=== PATIENT | female | born 1970 | race Two or more races ===

== ENCOUNTER → 2022-06-27 | Outpatient (CLI) | payer OTHER ==
[2022-06-27 10:21] LABS: Basophils # (auto) 0.1 10 ^3/uL (0-0.2); Eosinophils # (auto) 0.2 10 ^3/uL (0-0.8); Mean Corpuscular Volume 91.5 fL (80.0-100.0)
[2022-06-27 10:23] LABS: Basophils % (auto) 0.7 % (0.0-2.0); Eosinophils % (auto) 1.4 % (0.0-7.0); Hematocrit 39.7 % (36.0-46.0); Hemoglobin 13.6 g/dL (12.2-16.2); Lymphocytes # (auto) 4.6 10 ^3/uL (0.4-5.4); Lymphocytes % (auto) 38.2 % (10.0-50.0); Mean Corpuscular Hemoglobin 31.2 pg (28.0-32.0); Mean Corpuscular Hgb Conc. 34.1 g/dL (32.0-36.0); Neutrophils # (auto) 6.3 10 ^3/uL (1.6-8.6); Neutrophils % (auto) 51.7 % (37.0-80.0); Nucleated Red Blood Cells % 0.1 %; Red Blood Cells 4.35 10^6/uL (4.0-5.20); White Blood Cell 12.2 10^3/uL (4.4-10.8)
[2022-06-27 10:52] LABS: Albumin 3.1 g/dL (3.4-5.0); Calcium 8.8 mg/dL (8.5-10.1); Potassium 3.7 mmol/L (3.5-5.1)
[2022-06-27 10:58] LABS: BUN/Creatinine Ratio 23.3; Bilirubin, Total 0.6 mg/dL (0.2-1.0); Total Protein 7.6 g/dL (6.4-8.2)
[2022-06-27 11:16] LABS: Urine Blood 1+ /uL (Negative); Urine Specific Gravity 1.012 (1.001-1.035)
== END | disposition home or self-care (01) ==
LOC: LAB 09:45
PROVIDERS: ATTEND Nurse Practitioner Family
DX: Z76.89 Persons encountering health services in other specified circumstances (principal)
CPT/HCPCS: 36415; 80053; 80061; 81001; 83036; 84403; 84443; 85025

== ENCOUNTER → 2022-10-18 | Outpatient (CLI) | payer OTHER | END | disposition home or self-care (01) | LOC: LAB 12:14 | PROVIDERS: ATTEND Nurse Practitioner Family | DX: N39.0 Urinary tract infection, site not specified (principal) | CPT/HCPCS: 87086 ==

== ENCOUNTER → 2022-12-20 | Outpatient (CLI) | payer OTHER ==
[2022-12-20 12:18] LABS: Free T4 (Free Thyroxine) 0.89 ng/dL (0.89-1.76); Leuteinizing Hormone 46.2 IU/L
[2022-12-20 12:19] LABS: Follicle Stimulating Hormone 95.18 IU/L (SEE BELOW)
== END | disposition home or self-care (01) ==
LOC: LAB 10:59
PROVIDERS: ATTEND Nurse Practitioner Family
DX: N95.1 Menopausal and female climacteric states (principal)
CPT/HCPCS: 36415; 82672; 83001; 83002; 83036; 84439; 84443

== ENCOUNTER → 2023-05-10 | Outpatient (CLI) | payer OTHER ==
[2023-05-10 10:31] LABS: Basophils # (auto) 0 10 ^3/uL (0-0.2); Eosinophils # (auto) 0.2 10 ^3/uL (0-0.8); Hemoglobin 11.6 g/dL (12.2-16.2); Lymphocytes # (auto) 4.3 10 ^3/uL (0.4-5.4); Lymphocytes % (auto) 50.4 % (10.0-50.0); Mean Corpuscular Hemoglobin 28.5 pg (28.0-32.0); Monocytes # (auto) 0.7 10 ^3/uL (0-1.3); Neutrophils # (auto) 3.3 10 ^3/uL (1.6-8.6); White Blood Cell 8.6 10^3/uL (4.4-10.8)
[2023-05-10 10:33] LABS: Basophils % (auto) 0.4 % (0.0-2.0); Eosinophils % (auto) 2.8 % (0.0-7.0); Hematocrit 35.7 % (36.0-46.0); Mean Corpuscular Hgb Conc. 32.5 g/dL (32.0-36.0); Mean Corpuscular Volume 87.9 fL (80.0-100.0); Monocytes % (auto) 8.2 % (0.0-12.0); Neutrophils % (auto) 38.2 % (37.0-80.0); Nucleated Red Blood Cells % 0.1 %; Red Blood Cells 4.06 10^6/uL (4.0-5.20)
[2023-05-10 11:28] LABS: Alanine Aminotransferase 15 U/L (7-40); Albumin 3.9 g/dL (3.2-4.8); Alkaline Phosphatase 79 U/L (46-116)
[2023-05-10 11:29] LABS: Anion Gap 5 (5-15); Aspartate Aminotransferase 20 U/L (13-40); BUN/Creatinine Ratio 13.4 (10.0-20.0); Bilirubin, Total 0.8 mg/dL (0.2-1.0); Blood Urea Nitrogen 9 mg/dL (9-23); Calcium 8.7 mg/dL (8.7-10.4); Carbon Dioxide 27 mmol/L (20-30); Chloride 106 mmol/L (98-107); Glucose 88 mg/dL (74-106); Potassium 4.4 mmol/L (3.5-5.1); Sodium 138 mmol/L (136-145); Total Protein 6.9 g/dL (5.7-8.2)
[2023-05-10 11:53] LABS: Triglycerides 79 mg/dL (< 150)
[2023-05-10 11:54] LABS: LDL Cholesterol 108 mg/dL (< 100)
[2023-05-10 11:55] LABS: Cholesterol 183 mg/dL (< 200); HDL Cholesterol 59 mg/dL (40-59)
== END | disposition home or self-care (01) ==
LOC: LAB 09:48
DX: E78.5 Hyperlipidemia, unspecified (principal); R73.03 Prediabetes
CPT/HCPCS: 36415; 80053; 80061; 82043; 83036; 84439; 84443; 85025

== ENCOUNTER 2023-06-14 08:21 | Emergency (ER) | payer OTHER ==
[~2023-06-14] VITALS: Ht 157.5 cm; Wt 52.6 kg
[2023-06-14 08:40] VITALS: TEMP 97.6
[2023-06-14 09:25] LABS: Urine Bacteria NONE SEEN /hpf (None Seen); Urine Blood TRACE /uL (Negative); Urine Clarity Clear (Clear); Urine Color Colorless (Yellow); Urine Protein, UAD Negative (Negative); Urine Specific Gravity 1.013 (1.001-1.035); Urine Urobilinogen Normal (Negative); Urine WBC <1 /hpf (0 - 5); Urine pH 6.5 (5.0-8.0)
[2023-06-14 09:39] LABS: Basophils # (auto) 0.1 10 ^3/uL (0-0.2); Eosinophils # (auto) 0.2 10 ^3/uL (0-0.8); Hemoglobin 11.5 g/dL (12.2-16.2); Mean Corpuscular Volume 85.6 fL (80.0-100.0); Monocytes # (auto) 0.8 10 ^3/uL (0-1.3); Nucleated Red Blood Cells % 0.1 %
[2023-06-14 09:40] LABS: Basophils % (auto) 0.7 % (0.0-2.0); Hematocrit 35.9 % (36.0-46.0); Lymphocytes # (auto) 4.5 10 ^3/uL (0.4-5.4); Lymphocytes % (auto) 50.5 % (10.0-50.0); Mean Corpuscular Hemoglobin 27.3 pg (28.0-32.0); Mean Corpuscular Hgb Conc. 31.9 g/dL (32.0-36.0); Monocytes % (auto) 8.5 % (0.0-12.0); Neutrophils # (auto) 3.4 10 ^3/uL (1.6-8.6); Neutrophils % (auto) 38.3 % (37.0-80.0)
[2023-06-14 09:56] LABS: Alanine Aminotransferase 17 U/L (7-40); Albumin 4.2 g/dL (3.2-4.8); Alkaline Phosphatase 94 U/L (46-116); Anion Gap 6 (5-15); Aspartate Aminotransferase 25 U/L (13-40); BUN/Creatinine Ratio 15.9 (10.0-20.0); Blood Urea Nitrogen 11 mg/dL (9-23); Carbon Dioxide 26 mmol/L (20-30); Chloride 105 mmol/L (98-107); Glucose 90 mg/dL (74-106); Potassium 4.1 mmol/L (3.5-5.1); Sodium 137 mmol/L (136-145)
[2023-06-14 09:57] LABS: Bilirubin, Total 0.7 mg/dL (0.2-1.0); Total Protein 7.5 g/dL (5.7-8.2)
[2023-06-14] MEDS ORDERED: METR-344 PO (12:00)
[2023-06-14 12:28] VITALS: BP 105/76; PULSE 82; RESP 20; O2SAT 100
== END 2023-06-14 12:29 | disposition home or self-care (01) ==
LOC: ER 08:21
DX: K58.0 Irritable bowel syndrome with diarrhea (principal); Z79.899 Other long term (current) drug therapy
CPT/HCPCS: 36415; 74176; 80053; 81001; 83690; 85025

== ENCOUNTER 2023-06-23 08:47 | Emergency (ER) | payer OTHER ==
[~2023-06-23] VITALS: Ht 152.4 cm; Wt 53.3 kg
[~2023-06-23 08:47] MED LIST: METR-344 PO
[2023-06-23 09:50] VITALS: PULSE 88; RESP 14; O2SAT 99
[2023-06-23 09:51] LABS: Eosinophils # (auto) 0.3 10 ^3/uL (0-0.8); Hemoglobin 10.8 g/dL (12.2-16.2); Lymphocytes # (auto) 4.8 10 ^3/uL (0.4-5.4); Monocytes # (auto) 1.5 10 ^3/uL (0-1.3); Monocytes % (auto) 12.6 % (0.0-12.0)
[2023-06-23 09:53] LABS: Basophils # (auto) 0.1 10 ^3/uL (0-0.2); Basophils % (auto) 0.5 % (0.0-2.0); Eosinophils % (auto) 2.5 % (0.0-7.0); Hematocrit 33.3 % (36.0-46.0); Lymphocytes % (auto) 40.6 % (10.0-50.0); Mean Corpuscular Hemoglobin 27.3 pg (28.0-32.0); Mean Corpuscular Hgb Conc. 32.4 g/dL (32.0-36.0); Mean Corpuscular Volume 84.3 fL (80.0-100.0); Neutrophils # (auto) 5.2 10 ^3/uL (1.6-8.6); Neutrophils % (auto) 43.8 % (37.0-80.0); Red Blood Cells 3.96 10^6/uL (4.0-5.20); Red Cell Distribution Width 15.1 % (11.8-14.3); White Blood Cell 11.9 10^3/uL (4.4-10.8)
[2023-06-23 10:14] LABS: Alanine Aminotransferase 13 U/L (7-40); Albumin 3.7 g/dL (3.2-4.8); Alkaline Phosphatase 78 U/L (46-116); Anion Gap 6 (5-15); Aspartate Aminotransferase 18 U/L (13-40); BUN/Creatinine Ratio 14.3 (10.0-20.0); Bilirubin, Total 0.7 mg/dL (0.2-1.0); Blood Urea Nitrogen 10 mg/dL (9-23); Calcium 8.8 mg/dL (8.5-10.1); Carbon Dioxide 27 mmol/L (20-30); Chloride 104 mmol/L (98-107); Glucose 90 mg/dL (74-106); Sodium 137 mmol/L (136-145); Total Protein 6.9 g/dL (5.7-8.2)
[2023-06-23] MEDS ORDERED: SODIUM CHLORIDE 0.9% 1,000 ML IVB ONE (10:45)
[2023-06-23] MEDS ORDERED: SODIUM CHLORIDE 0.9% 1,000 ML IV ONE (10:45)
[2023-06-23] MEDS ORDERED: ONDANSETRON HCL 4 MG/2 ML VIAL IV ONE (10:45)
[2023-06-23 10:59] LABS: Magnesium 2.1 mg/dL (1.6-2.6)
[2023-06-23 11:19] LABS: Urine Bacteria NONE SEEN /hpf (None Seen); Urine Blood 1+ /uL (Negative); Urine Clarity HAZY (Clear); Urine Color Yellow (Yellow); Urine Mucus FEW (None Seen); Urine Protein, UAD TRACE (Negative); Urine Specific Gravity 1.015 (1.001-1.035); Urine Urobilinogen Normal (Negative); Urine WBC 3 /hpf (0 - 5); Urine pH 5.5 (5.0-8.0)
[2023-06-23] MEDS ORDERED: ONDANSETRON HCL 4 MG/2 ML VIAL ONE (11:33)
[2023-06-23] MEDS ORDERED: BISM262C44 PO (12:43)
[2023-06-23] MEDS ORDERED: METR375C PO ×2 (12:43)
[2023-06-23] MEDS ORDERED: NITR-87 PO (12:43)
[2023-06-23 13:00] VITALS: BP 102/51; PULSE 77; RESP 18; O2SAT 99
[2023-06-23] MEDS ORDERED: BACDST PO (13:21)
== END 2023-06-23 13:49 | disposition home or self-care (01) ==
LOC: ER 08:47
DX: K52.9 Noninfective gastroenteritis and colitis, unspecified (principal); N39.0 Urinary tract infection, site not specified; D64.9 Anemia, unspecified; Z79.899 Other long term (current) drug therapy
CPT/HCPCS: 36415; 71046; 80053; 81001; 83690; 83735; 85025; 93005; 96361; 96374; 99285; J2405; J7030

== ENCOUNTER 2023-08-08 08:18 | Day surgery (SDC) | payer OTHER ==
[2023-08-07 10:54] LABS: Basophils # (auto) 0 10 ^3/uL (0-0.2); Eosinophils # (auto) 0.3 10 ^3/uL (0-0.8); Hematocrit 31.6 % (36.0-46.0); INR 1.08 (0.9-1.15); Lymphocytes # (auto) 4.4 10 ^3/uL (0.4-5.4); Partial Thromboplastin Time 33.3 SEC (24.5-34.5); Prothrombin Time 11.3 sec (9.3-11.8); Red Blood Cells 3.94 10^6/uL (4.0-5.20)
[2023-08-07 10:55] LABS: Urine Bacteria NONE SEEN /hpf (None Seen); Urine Blood TRACE /uL (Negative); Urine Clarity Clear (Clear); Urine Color Yellow (Yellow); Urine Mucus FEW (None Seen); Urine Protein, UAD TRACE (Negative); Urine Specific Gravity 1.016 (1.001-1.035); Urine Urobilinogen Normal (Negative); Urine WBC 1 /hpf (0 - 5); Urine pH 6.5 (5.0-8.0)
[2023-08-07 10:57] LABS: Basophils % (auto) 0.3 % (0.0-2.0); Eosinophils % (auto) 3.4 % (0.0-7.0); Hemoglobin 9.9 g/dL (12.2-16.2); Mean Corpuscular Hemoglobin 25.1 pg (28.0-32.0); Mean Corpuscular Hgb Conc. 31.2 g/dL (32.0-36.0); Mean Corpuscular Volume 80.3 fL (80.0-100.0); Neutrophils # (auto) 3.2 10 ^3/uL (1.6-8.6); Neutrophils % (auto) 36.3 % (37.0-80.0); Red Cell Distribution Width 17.1 % (11.8-14.3); White Blood Cell 8.9 10^3/uL (4.4-10.8)
[2023-08-07 10:58] LABS: Alanine Aminotransferase 17 U/L (7-40); Alkaline Phosphatase 94 U/L (46-116); Anion Gap 6 (5-15); Aspartate Aminotransferase 23 U/L (13-40); Blood Urea Nitrogen 9 mg/dL (9-23); Calcium 8.9 mg/dL (8.5-10.1); Carbon Dioxide 25 mmol/L (20-30); Chloride 108 mmol/L (98-107); Glucose 90 mg/dL (74-106); Potassium 4.2 mmol/L (3.5-5.1); Sodium 139 mmol/L (136-145)
[2023-08-07 10:59] LABS: Bilirubin, Total 0.5 mg/dL (0.2-1.0); Total Protein 6.7 g/dL (5.7-8.2)
[2023-08-07 11:03] LABS: Albumin 3.5 g/dL (3.2-4.8)
[2023-08-07 13:11] LABS: Platelet Estimate Markedly Increased
[~2023-08-08] VITALS: Ht 170.2 cm; Wt 51.3 kg
[2023-08-08] MEDS ORDERED: PROPOFOL 10 MG/ML 20 ML IV ONE (10:09)
[2023-08-08] MEDS ORDERED: ONDANSETRON HCL 4 MG/2 ML VIAL ONE (10:09)
[2023-08-08] MEDS ORDERED: GLYCOPYRROLATE 0.2 MG/ML 1ML VIAL ONE (10:09)
[2023-08-08] MEDS ORDERED: KETAMINE 50mg/ML 1ml syringe ONE (10:09)
[2023-08-08] MEDS ORDERED: MIDAZOLAM HCL 2MG/2ML 2ml VIAL (1mg/ml) ONE (10:09)
[2023-08-08] MEDS ORDERED: DexAMETHasone SOD PHOS 10MG/1ML VIAL INJ ONE (11:05)
[2023-08-08] MEDS ORDERED: ceFAZolin 1GM VL ONE (11:05)
[2023-08-08 11:13] VITALS: TEMP 98.4; O2SAT 97
[2023-08-08] MEDS ORDERED: HYDROmorphone HCL 2 MG/ML VL/or syr ONE (12:26)
[2023-08-08] MEDS ORDERED: HYDROmorphone HCL 2 MG/ML VL/or syr IV ONE (12:30)
[2023-08-08 12:58] VITALS: BP 109/54; PULSE 73; RESP 16; O2SAT 98
== END 2023-08-08 13:00 | disposition home or self-care (01) ==
LOC: GI 08:18
PROVIDERS: ATTEND Internal Medicine Gastroenterology
DX: K52.9 Noninfective gastroenteritis and colitis, unspecified (principal); K63.3 Ulcer of intestine; K62.5 Hemorrhage of anus and rectum; K64.8 Other hemorrhoids; K29.90 Gastroduodenitis, unspecified, without bleeding; K25.9 Gastric ulcer, unspecified as acute or chronic, without hemorrhage or perforation; K44.9 Diaphragmatic hernia without obstruction or gangrene; K22.10 Ulcer of esophagus without bleeding; Z98.51 Tubal ligation status; Z86.010 Personal history of colon polyps; Z98.890 Other specified postprocedural states
CPT/HCPCS: 36415; 43239; 45380; 80053; 81001; 84702; 85025; 85610; 85730; J0690; J1100; J1170; J2250; J2405; J2704; J7030

== ENCOUNTER → 2023-09-03 | Outpatient (CLI) | payer OTHER ==
[2023-09-03 12:40] LABS: Basophils # (auto) 0 10 ^3/uL (0-0.2); Basophils % (auto) 0.3 % (0.0-2.0); Eosinophils # (auto) 0.1 10 ^3/uL (0-0.8); Eosinophils % (auto) 0.6 % (0.0-7.0); Hematocrit 36.1 % (36.0-46.0); Hemoglobin 11.5 g/dL (12.2-16.2); Lymphocytes # (auto) 6.5 10 ^3/uL (0.4-5.4); Lymphocytes % (auto) 45.4 % (10.0-50.0); Mean Corpuscular Hemoglobin 27.1 pg (28.0-32.0); Mean Corpuscular Hgb Conc. 31.8 g/dL (32.0-36.0); Monocytes % (auto) 6.8 % (0.0-12.0); Neutrophils # (auto) 6.7 10 ^3/uL (1.6-8.6); Neutrophils % (auto) 46.9 % (37.0-80.0); Red Blood Cells 4.25 10^6/uL (4.0-5.20); White Blood Cell 14.2 10^3/uL (4.4-10.8)
[2023-09-03 13:14] LABS: Erythrocyte Sedimentation Rate 7 mm/hr (0-20)
[2023-09-03 13:38] LABS: Chloride 103 mmol/L (98-107); Potassium 3.5 mmol/L (3.5-5.1); Sodium 138 mmol/L (136-145)
[2023-09-03 13:39] LABS: Anion Gap 6 (5-15); Carbon Dioxide 29 mmol/L (20-30)
[2023-09-03 13:44] LABS: BUN/Creatinine Ratio 31.3 (10.0-20.0); Blood Urea Nitrogen 21 mg/dL (9-23); Glucose 74 mg/dL (74-106)
== END | disposition home or self-care (01) ==
LOC: LAB 12:24
PROVIDERS: ATTEND Internal Medicine Gastroenterology
DX: K50.90 Crohn's disease, unspecified, without complications (principal); D64.9 Anemia, unspecified
CPT/HCPCS: 36415; 80048; 85025; 85652

== ENCOUNTER 2025-01-13 16:46 | Inpatient (IN) | payer OTHER ==
[~2025-01-13] VITALS: Ht 157.5 cm; Wt 57.4 kg
[2025-01-13] MEDS: SODIUM CHLORIDE 0.9% 1,000 ML IV ONE ×2 (01:08→23:06)
--- NOTE | 2025-01-13 17:26 | ED.PDOC ---
GI ASSESSMENT HPI Comments HPI: Poor Historian. 54-year-old female presents to emergency depart for evaluation will month history of lower abdominal pain constant nonradiating with the associated blood in the stool. She showed me some pictures on her smart phone of the blood in the stool. Patient denies any nausea and vomiting otherwise. She takes some medicine for inflammation of the intestine by her PCP. Past Medical History: Colitis Past Surgical History: Last here Colonoscopy and is scheduled for another one this month Vitals: Temperature of 97.7 F, pulse reduced 94, respiratory rate of 16, blood pressure 121/73, SpO2 of 99% on room air REVIEW OF SYSTEMS: CONSTITUTIONAL: Denies acute: fever, diaphoresis, chills, generalized weakness. HEAD: Denies acute: headache, photophobia Eyes: Denies acute: Double vision, vision loss, eye pain, eye discharge. EARS: Denies acute: tinnitus, hearing loss, ear discharge, ear pain, THROAT: Denies acute: sore throat, swelling, difficulty swallowing , pain with swallowing, change in voice. NECK: Denies acute: neck pain, neck swelling, stiff neck. HEART: Denies acute : chest pain, palpitations, LUNGS: Denies acute: SOB, wheezing, cough, hemoptysis ABDOMEN: Denies acute: Nausea, Vomiting, diarrhea, melena , hematemesis, SKIN: Denies acute: rash, redness, lesions, itchiness. EXTREMITIES: Denies acute: calf pain, numbness, tingling, weakness, denies pain in extremity. Denies acute: Low back pain. Neuro: Denies acute: focal neurological deficit, motor or sensory focal neurological deficit, tremors, seizure like activity, confusion, dizziness, change in mental status, loss of bowel or bladder function, cauda equina like symptoms. : Denies acute: dysuria, hematuria, flank pain, increase in urinary frequency. PSYCH: Denies acute: hallucination, suicidal ideation, homicidal ideation. FEMALE: Denies acute: abnormal vaginal bleeding, foul odor, unusual discharge. PHYSICAL EXAM: General: ----[id number]----acute distress, awake and alert. Head: normocephalic, atraumatic. Neck: supple, trachea is midline, no swelling. Throat: Normal phonation. Eyes:, no erythema, no purulent discharge, no proptosis, no icterus. Heart: regular rate, regular rhythm, no significant murmur appreciated. Lungs: no apparent respiratory distress, Able to speak in full sentences. No wheezing, no rhonchi, no crackles. No stridors Clear to auscultation bilaterally. Abdomen: Suprapubic lower abdomen tender to palpation, non distended, soft, no guarding, no rebound, + bowel sounds. Neuro: Awake, Alert, oriented to name, self, situation, follows commands GCS=15. Speech is normal. Skin: no petechia, no purpura, no cyanosis, non-pale, not jaundice. Lower extremities: --no - Pitting edema no deformity, no focal swelling, no calf TTP. Makes eye contact. moves all four extremities. Face: no apparent facial droop. Ambulating in the ED independently. ED COURSE: DISCLAIMER: This medical document was created using an electronic medical record system with voice recognition software and computerized dictation system. Although this document has been carefully reviewed, there might still be some phonetic and typographical errors. Occasional wrong-word or "sound-alike" substitutions may have occurred due to the inherent limitations of voice recognition software. These areas are purely typographical due to imperfections of the software programs and do not reflect any compromise in the patient's medical care. Please read the chart carefully and recognize, using context, where these substitutions have occurred. 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 Was a procedure done?: No X-Ray, Labs, Meds, VS Vital Signs Date Time Temp Pulse Resp B/P (MAP) Pulse Ox O2 Delivery O2 Flow Rate FiO2 01/13/25 17:10 97.7 94 16 121/73 (89) 99 97.7 Lab Test 01/13/25 17:34 01/13/25 17:00 Range/Units White Blood Count 9.3 4.4-10.8 10^3/uL Red Blood Count 3.99 L 4.0-5.20 10^6/uL Hemoglobin 12.0 L 12.2-16.2 g/dL Hematocrit 36.0 36.0-46.0 % Mean Corpuscular Volume 90.2 80.0-100.0 fL Mean Corpuscular Hemoglobin 30.2 28.0-32.0 pg Mean Corpuscular Hemoglobin Concent 33.4 32.0-36.0 g/dL Red Cell Distribution Width 15.5 H 11.8-14.3 % Platelet Count 433 140-450 10^3/uL Mean Platelet Volume 7.3 6.9-10.8 fL Neutrophils (%) (Auto) 37.1 37.0-80.0 % Lymphocytes (%) (Auto) 49.3 10.0-50.0 % Monocytes (%) (Auto) 9.9 0.0-12.0 % Eosinophils (%) (Auto) 3.1 0.0-7.0 % Basophils (%) (Auto) 0.6 0.0-2.0 % Neutrophils # (Auto) 3.5 1.6-8.6 10 ^3/uL Lymphocytes # (Auto) 4.6 0.4-5.4 10 ^3/uL Monocytes # (Auto) 0.9 0-1.3 10 ^3/uL Eosinophils # (Auto) 0.3 0-0.8 10 ^3/uL Basophils # (Auto) 0.1 0-0.2 10 ^3/uL Nucleated Red Blood Cells 0.0 % Prothrombin Time 10.3 9.3-11.8 sec Prothrombin Time INR 0.97 0.9-1.15 Activated Partial Thromboplast Time 32.2 24.5-34.5 SEC Sodium Level 138 136-145 mmol/L Potassium Level 4.1 3.5-5.1 mmol/L Chloride Level 103 98-107 mmol/L Carbon Dioxide Level 29 20-31 mmol/L Anion Gap 6 5-15 Blood Urea Nitrogen 16 9-23 mg/dL Creatinine 0.94 0.550-1.02 mg/dL Glomerular Filtration Rate Calc 71 >90 mL/min BUN/Creatinine Ratio 17.0 10.0-20.0 Serum Glucose 104 74-106 mg/dL Lactic Acid Level 0.8 0.4-2.0 mmol/L Calcium Level 9.8 8.7-10.4 mg/dL Total Bilirubin 0.6 0.2-1.0 mg/dL Aspartate Amino Transferase (AST) 24 13-40 U/L Alanine Aminotransferase (ALT) 20 7-40 U/L Alkaline Phosphatase 92 46-116 U/L Total Protein 6.9 5.7-8.2 g/dL Albumin 4.0 3.2-4.8 g/dL Urine Color Light-yellow Yellow Urine Clarity Turbid H Clear Urine pH 7.0 5.0-9.0 Urine Specific [place] 1.016 1.001-1.035 Urine Protein Negative Negative Urine Ketones Negative Negative Urine Blood Negative Negative /uL Urine Nitrite Negative Negative Urine Bilirubin Negative Negative Urine Urobilinogen Normal Negative mg/dL Urine Leukocyte Esterase Negative Negative /uL Urine RBC 8 0 - 4 /hpf Urine Microscopic WBC 1 0-5 /HPF Urine Squamous Epithelial Cells Mod <5 /hpf Urine Amorphous Crystals Few None Seen /hpf Urine Bacteria None seen None Seen /hpf Urine Glucose Normal Normal mg/dL Current Medications Medications (Trade) Dose Ordered Sig/Carlton Route Start Time Stop Time Status Last Admin Pantoprazole Sodium (Protonix) 40 mg ONCE ONCE IV 01/13/25 18:00 01/13/25 18:11 DC 01/13/25 21:15 Sodium Chloride 1,000 ml @ 1,000 mls/hr Q1H ONCE IV 01/13/25 18:00 01/13/25 18:59 DC 01/13/25 01:08 Ciprofloxacin 200 ml @ 200 mls/hr ONCE ONCE IV 01/13/25 19:30 01/13/25 20:29 DC 01/13/25 21:15 Sodium Chloride 1,000 ml @ 1,000 mls/hr Q1H ONCE IV 01/13/25 19:30 01/13/25 20:29 ID 01/13/25 23:06 [facility] [id number] [place] [id number] Ph: [phone] DIAGNOSTIC IMAGING Diagnostic Imaging Report : [id number] Signed PATIENT: ARMAND BRAND ACCT: [id number] UNIT: [id number] : 1970 LOC: ER ROOM / BED: / AGE / SEX: 54 / F ADM STATUS: REG ER SERVICE 1717 ORDERING PHYSICIAN: RICKI LINDSAY DO PROCEDURE(s): ABPL - CT AB PEL WO CON-NO ORAL OR IV REASON: abd pain, blood in stool ORDER NUMBER(s): [id number], ACCESSION NUMBER(s): [id number] Exam: CT CT AB PEL WO CON-NO ORAL OR IV History: abd pain, blood in stool Comparison Study: CT CT AB PEL WO CON-NO ORAL OR IV on DOS: 06/14/23 TECHNIQUE: Multidetector CT of the abdomen and pelvis without IV contrast. Axial, coronal and sagittal multiplanar reformats were obtained from the axial data set by the technologist. Radiation Dose Information: CT Dose: CTDI volume is 5.77 mGy. Dose-length product is 103.3 and mGy*cm FINDINGS: Bibasilar atelectasis with bibasilar blebs. Socially visualized heart is unremarkable. Mild hepatomegaly. Otherwise, liver, spleen, gallbladder, pancreas and adrenal glands unremarkable. 4 cm right renal lower pole cysts mild bilateral pelviectasis. Otherwise, kidneys, ureters and urinary bladder unremarkable. Small amount of fluid within the vaginal canal. Otherwise, uterus and adnexa are unremarkable. Small hiatal hernia. Stomach is mildly distended and filled with ingested material. Small bowel loops unremarkable. Appendix is unremarkable. Large amount of fecal material within the cecum with small to moderate amount of fecal material within the remainder of the colon. Sigmoid diverticulosis without diverticulitis. Mild wall thickening of the cecal. Mild nonspecific fat stranding fat stranding adjacent to the ascending colon. Segmental decompression of the descending colon which may be from normal peristalsis. No evidence of intraperitoneal free air or free fluid. No evidence of aortic aneurysm. Mild atherosclerotic calcification of the aorta and bilateral iliacs. There are multiple mesenteric lymph nodes, largest measuring up to 0.8 cm in short axis relatively unchanged from prior imaging Mild fat stranding over the anterior pelvic. Fat stranding with Injection granulomas of the bilateral gluteal regions. No evidence of acute osseous abnormalities. IMPRESSION: Mild wall thickening of the cecum cecum with mild fat stranding adjacent to the cecum and ascending colon and mild wall thickening of the distal rectum. Correlate for colitis. Small hiatal hernia. Unchanged multiple mesenteric lymph nodes which represent mesenteric adenitis in the right clinical setting. ATED BY: MEGAN UP DO DICTATED DATE/TIME: 01/13/251813 SIGNED BY: MEGAN UP DO SIGNED DATE/TIME: 01/13/251813 CC: Time of 1ST Reevaluation: 17:07 Reevaluation 1ST: Unchanged Patient Education/Counseling: Treatment, Other (need for admission ) Family Education/Counseling: No Family Present SEPSIS Sepsis Screen Date sepsis recognized/suspect: Jan 13, 2025 Time Sepsis recognized/suspect: 1709 Recent Procedure: No On Antibiotic Therapy: No Respiratory Rate >20: No Heart Rate >90: Yes Temp<36 C (96.8 F) or >38.3 C: No SBP <90 or MAP <65 mmHG: No New Acute Mental Status Change: No Is the patient on CPAP, BIPAP,: No 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 ) Stool Occult Blood (01/13/25 17:17) Ct Ab Pel Wo Con-No Oral Or Iv (01/13/25 17:17) Vital Signs Date Time Temp Pulse Resp B/P (MAP) Pulse Ox O2 Delivery O2 Flow Rate FiO2 01/13/25 17:10 97.7 94 16 121/73 (89) 99 97.7 Laboratory Tests Test 01/13/25 17:34 Lactic Acid Level 0.8 mmol/L (0.4-2.0) White Blood Count 9.3 10^3/uL (4.4-10.8) Medications Medications Dose Ordered Sig/Carlton Route Start Time Stop Time Status Last Admin Dose Admin Ciprofloxacin 200 ml @ 200 mls/hr ONCE ONCE IV 01/13/25 19:30 01/13/25 20:29 DC 01/13/25 21:15 Pantoprazole Sodium 40 mg ONCE ONCE IV 01/13/25 18:00 01/13/25 18:11 DC 01/13/25 21:15 Sodium Chloride 1,000 ml @ 1,000 mls/hr Q1H ONCE IV 01/13/25 18:00 01/13/25 18:59 DC 01/13/25 01:08 Sodium Chloride 1,000 ml @ 1,000 mls/hr Q1H ONCE IV 01/13/25 19:30 01/13/25 20:29 DC 01/13/25 23:06 Departure 1 Departure Time of Disposition: 18:00 Impression: Primary Impression: Rectal bleed Additional Impressions: Abdominal pain Non-specific colitis Mesenteric adenitis Disposition: ADMITTED INPATIENT Admit to: Tele Condition: Guarded e-Prescriptions No Active Prescriptions or Reported Meds Discharged With: Self I personally scribed for RICKI LINDSAY DO ([email or web address]) on 01/14/25 at 01:25. Electronically submitted by Jackson Patel ([email or web address]). RICKI LINDSAY DO Jan 13, 2025 17:25
[2025-01-13 17:43] LABS: Urine Amorphous Crystal FEW /hpf (None Seen); Urine Protein, UAD Negative (Negative)
[2025-01-13 17:56] LABS: Hematocrit 36.0 % (36.0-46.0); Hemoglobin 12.0 g/dL (12.2-16.2); Mean Corpuscular Hemoglobin 30.2 pg (28.0-32.0); Mean Corpuscular Volume 90.2 fL (80.0-100.0); Nucleated Red Blood Cells % 0.0 %
[2025-01-13 18:14] LABS: INR 0.97 (0.9-1.15); Partial Thromboplastin Time 32.2 SEC (24.5-34.5); Prothrombin Time 10.3 sec (9.3-11.8)
[2025-01-13 18:15] LABS: Alanine Aminotransferase 20 U/L (7-40); Albumin 4.0 g/dL (3.2-4.8); Alkaline Phosphatase 92 U/L (46-116); Anion Gap 6 (5-15); BUN/Creatinine Ratio 17.0 (10.0-20.0); Bilirubin, Total 0.6 mg/dL (0.2-1.0); Blood Urea Nitrogen 16 mg/dL (9-23); Calcium 9.8 mg/dL (8.7-10.4); Carbon Dioxide 29 mmol/L (20-31); Chloride 103 mmol/L (98-107); Glucose 104 mg/dL (74-106); Potassium 4.1 mmol/L (3.5-5.1); Sodium 138 mmol/L (136-145); Total Protein 6.9 g/dL (5.7-8.2)
--- NOTE | 2025-01-13 18:16 | DVH ---
Exam: CT CT AB PEL WO CON-NO ORAL OR IV History: abd pain, blood in stool Comparison Study: CT CT AB PEL WO CON-NO ORAL OR IV on DOS: 06/14/23 TECHNIQUE: Multidetector CT of the abdomen and pelvis without IV contrast. Axial, coronal and sagitta l multiplanar reformats were obtained from the axial data set by the technologist. Radiation Dose Information: CT Dose: CTDI volume is 5.77 mGy. Dose-length product is 103.3 and mGy*cm FINDINGS: Bibasilar atelectasis with bibasilar blebs. Socially visualized heart is unremarkable. Mild hepatomegaly. Otherwise, liver, spleen, gallbladder, pancreas and adrenal glands unremarkable. 4 cm right renal lower pole cysts mild bilateral pelviectasis. Otherwise, kidneys, ureters and urinar y bladder unremarkable. Small amount of fluid within the vaginal canal. Otherwise, uterus and adnexa are unremarkable. Small hiatal hernia. Stomach is mildly distended and filled with ingested material. Small bowel loops unremarkable. Appendix is unremarkable. Large amount of fecal material within the cecum with small t o moderate amount of fecal material within the remainder of the colon. Sigmoid diverticulosis without diverticulitis. Mild wall thickening of the cecal. Mild nonspecific fat stranding fat stranding monisha cent to the ascending colon. Segmental decompression of the descending colon which may be from normal peristalsis. No evidence of intraperitoneal free air or free fluid. No evidence of aortic aneurysm. Mild atherosclerotic calcification of the aorta and bilateral iliacs . There are multiple mesenteric lymph nodes, largest measuring up to 0.8 cm in short axis relatively un changed from prior imaging Mild fat stranding over the anterior pelvic. Fat stranding with Injection granulomas of the bilatera l gluteal regions. No evidence of acute osseous abnormalities. IMPRESSION: Mild wall thickening of the cecum cecum with mild fat stranding adjacent to the cecum and ascending c olon and mild wall thickening of the distal rectum. Correlate for colitis. Small hiatal hernia. Unchanged multiple mesenteric lymph nodes which represent mesenteric adenitis in the right clinical s etting.
[2025-01-13] MEDS ORDERED: MORPHINE SULFATE INJ 2 MG/ml SYRG IV PRN (20:15)
[2025-01-13 20:56] VITALS: PULSE 89; RESP 17
[2025-01-13] MEDS: PANTOPRAZOLE 40 MG/10 ML VIAL INJ IV ONE (21:15)
[2025-01-13] MEDS: CIPROFLOXACIN 400MG/200ML 200 ML IV ONE (21:15)
--- NOTE | 2025-01-14 03:09 | DVHHP2 ---
History of Present Illness Reason for Visit: Abdominal pain History of Present Illness 54-year-old female presents for evaluation of abdominal pain. Patient reports symptoms of lower abdominal pain with associated blood in the stool that is been going on for the past one month. Denies nausea or vomiting. She does report a previous history of colitis. No other acute complaints reported. Past Medical History Colitis Past Surgical History Denies Family History Noncontributory Smoke: No ALCOHOL: none Drugs: None Lives: with Family Review of Systems Review of Systems Review of systems are currently negative otherwise addressed in HPI. Allergies: Coded Allergies: No Known Drug Allergy (Verified Allergy, Unknown, 06/23/23) Medications Current Medications Medications Dose Ordered Sig/Carlton Route Start Time Stop Time Status Last Admin Dose Admin Metronidazole 100 ml @ 100 mls/hr Q8HR IV 01/13/25 22:00 01/13/25 23:07 100 MLS/HR Ceftriaxone Sodium 50 ml @ 100 mls/hr DAILY@09 IV 01/14/25 09:00 Pantoprazole Sodium 40 mg DAILY IV 01/14/25 10:00 Acetaminophen/ Hydrocodone Bitart 1 tab Q4HP PRN PO 01/13/25 20:15 Ondansetron HCl 4 mg Q4HP PRN IV 01/13/25 20:15 Acetaminophen 650 mg Q6HP PRN PO 01/13/25 20:15 Morphine Sulfate 2 mg Q6HPRN PRN IV 01/13/25 20:15 Exam Vital Signs Vital Signs Date Time Temp Pulse Resp B/P (MAP) Pulse Ox O2 Delivery O2 Flow Rate FiO2 01/13/25 20:56 89 17 Room Air* 0 21 21 01/13/25 20:54 98.5 119/65 (83) 99 98.5 Exam Gen: 64-year-old female in mild distress Skin: Warm, dry, normal color and texture, no rash. HEENT: Normocephalic atraumatic, mucous membranes moist and pink. Neck: Cervical and supraclavicular nodes normal without enlargement, trachea is midline, thyroid gland is normal without masses. Pulmonary: Clear to auscultation and percussion bilaterally. Cardiac: Regular rate and rhythm. No murmur Abdomen: Soft, lower abdominal pain, nondistended, bowel sounds present all 4 quadrants, no guarding, no rigidity, no organomegaly. Extremities: No cyanosis, clubbing, no edema Neuro: Cranial nerves II through XII grossly intact, normal affect and speech, no focal motor deficits. Labs/Xrays ORDERING PHYSICIAN: RICKI LINDSAY DO PROCEDURE(s): ABPL - CT AB PEL WO CON-NO ORAL OR IV REASON: abd pain, blood in stool ORDER NUMBER(s): [id number], ACCESSION NUMBER(s): [id number] Exam: CT CT AB PEL WO CON-NO ORAL OR IV History: abd pain, blood in stool Comparison Study: CT CT AB PEL WO CON-NO ORAL OR IV on DOS: 06/14/23 TECHNIQUE: Multidetector CT of the abdomen and pelvis without IV contrast. Axial, coronal and sagittal multiplanar reformats were obtained from the axial data set by the technologist. Radiation Dose Information: CT Dose: CTDI volume is 5.77 mGy. Dose-length product is 103.3 and mGy*cm FINDINGS: Bibasilar atelectasis with bibasilar blebs. Socially visualized heart is unremarkable. Mild hepatomegaly. Otherwise, liver, spleen, gallbladder, pancreas and adrenal glands unremarkable. 4 cm right renal lower pole cysts mild bilateral pelviectasis. Otherwise, kidneys, ureters and urinary bladder unremarkable. Small amount of fluid within the vaginal canal. Otherwise, uterus and adnexa are unremarkable. Small hiatal hernia. Stomach is mildly distended and filled with ingested material. Small bowel loops unremarkable. Appendix is unremarkable. Large amount of fecal material within the cecum with small to moderate amount of fecal material within the remainder of the colon. Sigmoid diverticulosis without diverticulitis. Mild wall thickening of the cecal. Mild nonspecific fat stranding fat stranding adjacent to the ascending colon. Segmental decompression of the descending colon which may be from normal peristalsis. No evidence of intraperitoneal free air or free fluid. No evidence of aortic aneurysm. Mild atherosclerotic calcification of the aorta and bilateral iliacs. There are multiple mesenteric lymph nodes, largest measuring up to 0.8 cm in short axis relatively unchanged from prior imaging Mild fat stranding over the anterior pelvic. Fat stranding with Injection granulomas of the bilateral gluteal regions. No evidence of acute osseous a bnormalities. IMPRESSION: Mild wall thickening of the cecum cecum with mild fat stranding adjacent to the cecum and ascending colon and mild wall thickening of the distal rectum. Correlate for colitis. Small hiatal hernia. Unchanged multiple mesenteric lymph nodes which represent mesenteric adenitis in the right clinical setting. Labs Test 01/13/25 17:34 01/13/25 17:00 Range/Units White Blood Count 9.3 4.4-10.8 10^3/uL Red Blood Count 3.99 L 4.0-5.20 10^6/uL Hemoglobin 12.0 L 12.2-16.2 g/dL Hematocrit 36.0 36.0-46.0 % Mean Corpuscular Volume 90.2 80.0-100.0 fL Mean Corpuscular Hemoglobin 30.2 28.0-32.0 pg Mean Corpuscular Hemoglobin Concent 33.4 32.0-36.0 g/dL Red Cell Distribution Width 15.5 H 11.8-14.3 % Platelet Count 433 140-450 10^3/uL Mean Platelet Volume 7.3 6.9-10.8 fL Neutrophils (%) (Auto) 37.1 37.0-80.0 % Lymphocytes (%) (Auto) 49.3 10.0-50.0 % Monocytes (%) (Auto) 9.9 0.0-12.0 % Eosinophils (%) (Auto) 3.1 0.0-7.0 % Basophils (%) (Auto) 0.6 0.0-2.0 % Neutrophils # (Auto) 3.5 1.6-8.6 10 ^3/uL Lymphocytes # (Auto) 4.6 0.4-5.4 10 ^3/uL Monocytes # (Auto) 0.9 0-1.3 10 ^3/uL Eosinophils # (Auto) 0.3 0-0.8 10 ^3/uL Basophils # (Auto) 0.1 0-0.2 10 ^3/uL Nucleated Red Blood Cells 0.0 % Prothrombin Time 10.3 9.3-11.8 sec Prothrombin Time INR 0.97 0.9-1.15 Activated Partial Thromboplast Time 32.2 24.5-34.5 SEC Sodium Level 138 136-145 mmol/L Potassium Level 4.1 3.5-5.1 mmol/L Chloride Level 103 98-107 mmol/L Carbon Dioxide Level 29 20-31 mmol/L Anion Gap 6 5-15 Blood Urea Nitrogen 16 9-23 mg/dL Creatinine 0.94 0.550-1.02 mg/dL Glomerular Filtration Rate Calc 71 >90 mL/min BUN/Creatinine Ratio 17.0 10.0-20.0 Serum Glucose 104 74-106 mg/dL Lactic Acid Level 0.8 0.4-2.0 mmol/L Calcium Level 9.8 8.7-10.4 mg/dL Total Bilirubin 0.6 0.2-1.0 mg/dL Aspartate Amino Transferase (AST) 24 13-40 U/L Alanine Aminotransferase (ALT) 20 7-40 U/L Alkaline Phosphatase 92 46-116 U/L Total Protein 6.9 5.7-8.2 g/dL Albumin 4.0 3.2-4.8 g/dL Urine Color Light-yellow Yellow Urine Clarity Turbid H Clear Urine pH 7.0 5.0-9.0 Urine Specific [place] 1.016 1.001-1.035 Urine Protein Negative Negative Urine Ketones Negative Negative Urine Blood Negative Negative /uL Urine Nitrite Negative Negative Urine Bilirubin Negative Negative Urine Urobilinogen Normal Negative mg/dL Urine Leukocyte Esterase Negative Negative /uL Urine RBC 8 0 - 4 /hpf Urine Microscopic WBC 1 0-5 /HPF Urine Squamous Epithelial Cells Mod <5 /hpf Urine Amorphous Crystals Few None Seen /hpf Urine Bacteria None seen None Seen /hpf Urine Glucose Normal Normal mg/dL Assessment/Plan Assessment/Plan Assessment Acute abdominal pain Acute colitis Plan Admit the patient to [facility] to the hospitalist GI consultation Rocephin/Flagyl Clear liquid diet Pain management Continue treatment per orders. Plan discussed with: Patient My Orders Orders - RANDALL RUANO AGACNP Procedure Category Date Status Time Admit ADMIT 01/13/25 Transmitted 19:53 Stool Bacterial RUBY 01/13/25 Uncollected Culture 20:06 Clostridium Difficile RUBY 01/13/25 Uncollected Toxin 20:06 Metronidazole PHA 01/13/25 In Process 500mg/100ml (Flagyl 22:00 Ceftriaxone 1gm/50ml PHA 01/14/25 In Process D5w (Rocephin) 09:00 Basic Metabolic Panel LAB 01/14/25 Logged 04:00 Pantoprazole PHA 01/14/25 In Process (Protonix) 10:00 Hydrocodone-Acet PHA 01/13/25 In Process 5/325mg Tab (Sequim 20:15 Ondansetron Hcl PHA 01/13/25 In Process (Zofran) 20:15 Complete Blood Count LAB 01/14/25 Logged 04:00 Condition: Stable JEREMY 01/13/25 In Process 20:06 Acetaminophen Tablet PHA 01/13/25 In Process (Tylenol Tablet) 20:15 Clear Liq Diet DIET 01/14/25 Transmitted Breakfast Bedrest With Bathroom JEREMY 01/13/25 In Process Privileg 20:06 Morphine Sulfate PHA 01/13/25 In Process Injection 20:15 Date of Service: Jan 13, 2025 Billing Provider: RANDALL RUANO Common Visit Codes: [id number] INP/OBS CARE (HIGH) RANDALL RUANO Jan 14, 2025 03:09
[2025-01-14] MEDS: HYDROcodone-ACET 5/325MG TAB PO PRN (05:42)
[2025-01-14 05:54] LABS: Hematocrit 36.0 % (36.0-46.0); Hemoglobin 11.9 g/dL (12.2-16.2); Mean Corpuscular Hemoglobin 30.0 pg (28.0-32.0); Mean Corpuscular Volume 90.8 fL (80.0-100.0); Nucleated Red Blood Cells % 0.1 %
[2025-01-14 05:59] LABS: Potassium 3.9 mmol/L (3.5-5.1); Sodium 141 mmol/L (136-145)
[2025-01-14 06:00] LABS: Anion Gap 7 (5-15); Carbon Dioxide 26 mmol/L (20-31)
[2025-01-14 06:05] LABS: BUN/Creatinine Ratio 11.9 (10.0-20.0); Glucose 97 mg/dL (74-106)
[2025-01-14 06:06] LABS: Blood Urea Nitrogen 8 mg/dL (9-23); Calcium 8.4 mg/dL (8.7-10.4); Chloride 108 mmol/L (98-107)
[2025-01-14 08:05] VITALS: PULSE 81; RESP 18; O2SAT 96
[2025-01-14] MEDS: PANTOPRAZOLE 40 MG/10 ML VIAL INJ IV SCH (08:05)
[2025-01-14] MEDS: cefTRIAXone 1GM/50ML D5W 50 ML IV SCH (08:29)
[2025-01-14] MEDS: ONDANSETRON HCL 4 MG/2 ML VIAL IV PRN (10:45)
--- NOTE | 2025-01-14 14:06 | DVHPN2 ---
Progress Note Date Seen: Jan 14, 2025 Medical Necessity Reason Pt with a Central, PICC or Fol: No Subjective Patient reports: No new complaints Review of Systems: HEENT:Normal, CVS:Normal, RESPIRATORY:Normal, GI:Normal, :Normal, MSK:Normal, NEURO:Normal Objective vital signs Vital Sign Date Time Temp Pulse Resp B/P (MAP) Pulse Ox O2 Delivery O2 Flow Rate FiO2 01/14/25 11:52 97.9 71 20 106/61 (76) 100 97.9 01/14/25 08:05 Room Air* 0 21 medications Current Medications Medications Dose Ordered Sig/Carlton Route Start Time Stop Time Status Last Admin Dose Admin Metronidazole 100 ml @ 100 mls/hr Q8HR IV 01/13/25 22:00 01/14/25 06:34 100 MLS/HR Ceftriaxone Sodium 50 ml @ 100 mls/hr DAILY@09 IV 01/14/25 09:00 01/14/25 08:29 100 MLS/HR Pantoprazole Sodium 40 mg DAILY IV 01/14/25 10:00 01/14/25 08:05 40 MG Acetaminophen/ Hydrocodone Bitart 1 tab Q4HP PRN PO 01/13/25 20:15 01/14/25 05:42 1 TAB Ondansetron HCl 4 mg Q4HP PRN IV 01/13/25 20:15 01/14/25 10:45 4 MG Acetaminophen 650 mg Q6HP PRN PO 01/13/25 20:15 Morphine Sulfate 2 mg Q6HPRN PRN IV 01/13/25 20:15 Examination: GENERAL:Normal, HEENT:Normal, NECK:Normal, LUNGS:Normal, CVS:Normal, ABDOMEN:Normal, MSK:Normal, SKIN:Normal, NEURO:Normal, :Normal laboratory and microbiology Laboratory Tests 01/14/25 05:19 Test 01/14/25 05:19 Range/Units Serum Glucose 97 74-106 mg/dL Problem List/Assessment/Plan Problem List/Assessment/Plan #1 ulcerative colitis with flare up: ivf, iv steroids, gi eval, mesalamine advance care planning- full code-time spent 18 mins Plan discussed with: Patient, Spouse My Orders My Orders Orders - RANDALL MONTGOMERY MD Procedure Category Date Status Time * Gi Dvh Diesel Mechanic Helper CONS 01/14/25 Transmitted 14:01 Methylprednisolone PHA 01/14/25 Transmitted Sod Succ (Solu Medrol 14:15 Methylprednisolone PHA 01/14/25 Transmitted Sod Succ (Solu Medrol 22:[address] Capsule PHA 01/14/25 Transmitted (Delzicol Delayed 14:[address] Capsule PHA 01/14/25 Transmitted (Delzicol Delayed 22:00 NS PHA 01/14/25 Transmitted 14:15 Complete Blood Count LAB 01/15/25 Verified 06:00 Comprehensive LAB 01/15/25 Verified Metabolic Panel 06:00 Date of Service: Jan 14, 2025 Billing Provider: RANDALL MONTGOMERY MD Common Visit Codes: [id number] INP/OBS CARE(HIGH) Secondary Visit Codes: [id number] CARE PLAN 30 MINUTES RANDALL MONTGOMERY MD Jan 14, 2025 14:06
[2025-01-14] MEDS: SODIUM CHLORIDE 0.9% 1,000 ML IV SCH (14:15)
[2025-01-14] MEDS: MESALAMINE 400mg Delayed Release Cap PO ONE (14:23)
[2025-01-14] MEDS: methylPREDNISolone SOD SUCC 40 MG/ML VL IV ONE (14:24)
[2025-01-14 20:30] VITALS: PULSE 70; RESP 18; O2SAT 97
[2025-01-14 21:00] VITALS: BP 105/60; PULSE 70; RESP 18; TEMP 98.3; O2SAT 97
[2025-01-14 21:10] VITALS: PULSE 70; RESP 18; O2SAT 97
[2025-01-14] MEDS ORDERED: MESA0.37 PO (21:43)
[2025-01-14] MEDS ORDERED: CHOL20007 PO (21:44)
--- NOTE | 2025-01-14 22:00 | DVHINCON2 ---
Date of service: Jan 14, [address] Luis Reason for Consultation Colitis flare up History of Present Illness 54-year-old female presents for evaluation of abdominal pain. Patient reports symptoms of lower abdominal pain with associated blood in the stool that is been going on for the past one month. Denies nausea or vomiting. She does report a previous history of colitis. No other acute complaints reported. I did an EGD and a colonoscopy for her in July of 2023. Patient had a small hiatal hernia with GERD. She had mild diffuse colitis and ileitis with relative sparing of rectum Since then the patient did not follow up with me what was being seen by the gastro group. Patient is currently maintained on mesalamine Past Medical History Past Medical History Colitis Hiatal hernia with GERD Past Surgical History Past Surgical History EGD and colonoscopy on August 08, 2023 Family History: Diabetes mellitus G8 FATHER Hypertension G8 MOTHER Allergies: Coded Allergies: No Known Drug Allergy (Verified Allergy, Unknown, 06/23/23) Home Meds Reported Medications Cholecalciferol (VITAMIN D3) 2,000 Unit Tab, 1 TAB PO DAILY, #30 TAB 5 Refills 01/14/25 Mesalamine (Apriso) 0.375 Gm Cap, 4 CAP PO BID, #120 CAP 3 Refills 01/14/25 Current Medications Current Medications Medications (Trade) Dose Ordered Sig/Carlton Route PRN Reason Start Time Stop Time Status Last Admin Metronidazole 100 ml @ 100 mls/hr Q8HR IV 01/13/25 22:00 01/14/25 14:04 DC 01/14/25 06:34 Ceftriaxone Sodium 50 ml @ 100 mls/hr DAILY@09 IV 01/14/25 09:00 01/14/25 14:04 DC 01/14/25 08:29 Pantoprazole Sodium (Protonix) 40 mg DAILY IV 01/14/25 10:00 01/14/25 08:05 Methylprednisolone Sodium Succinate (Solu Medrol) 40 mg Q8HR IV 01/14/25 22:00 Mesalamine (DELZICOL Delayed Release Capsule) 800 mg TID PO 01/14/25 22:00 Sodium Chloride 1,000 ml @ 75 mls/hr [id number] IV 01/14/25 14:15 Vital Signs Vital Signs Date Time Temp Pulse Resp B/P (MAP) Pulse Ox O2 Delivery O2 Flow Rate FiO2 01/14/25 18:32 98.7 82 20 110/67 (81) 100 98.7 01/14/25 08:05 Room Air* 0 21 Physical Exam Gen: 64-year-old female in mild distress Skin: Warm, dry, normal color and texture, no rash. HEENT: Normocephalic atraumatic, mucous membranes moist and pink. Neck: Cervical and supraclavicular nodes normal without enlargement, trachea is midline, thyroid gland is normal without masses. Pulmonary: Clear to auscultation and percussion bilaterally. Cardiac: Regular rate and rhythm. No murmur Abdomen: Soft, lower abdominal pain, nondistended, bowel sounds present all 4 quadrants, no guarding, no rigidity, no organomegaly. Extremities: No cyanosis, clubbing, no edema Neuro: Cranial nerves II through XII grossly intact, normal affect and speech, no focal motor deficits. Labs/Diagnostic Data Labs Test 01/14/25 05:19 01/13/25 17:34 01/13/25 17:00 Range/Units White Blood Count 7.8 4.4-10.8 10^3/uL Red Blood Count 3.96 L 4.0-5.20 10^6/uL Hemoglobin 11.9 L 12.2-16.2 g/dL Hematocrit 36.0 36.0-46.0 % Mean Corpuscular Volume 90.8 80.0-100.0 fL Mean Corpuscular Hemoglobin 30.0 28.0-32.0 pg Mean Corpuscular Hemoglobin Concent 33.0 32.0-36.0 g/dL Red Cell Distribution Width 15.8 H 11.8-14.3 % Platelet Count 390 140-450 10^3/uL Mean Platelet Volume 7.2 6.9-10.8 fL Neutrophils (%) (Auto) 34.5 L 37.0-80.0 % Lymphocytes (%) (Auto) 48.7 10.0-50.0 % Monocytes (%) (Auto) 11.3 0.0-12.0 % Eosinophils (%) (Auto) 4.7 0.0-7.0 % Basophils (%) (Auto) 0.8 0.0-2.0 % Neutrophils # (Auto) 2.7 1.6-8.6 10 ^3/uL Lymphocytes # (Auto) 3.8 0.4-5.4 10 ^3/uL Monocytes # (Auto) 0.9 0-1.3 10 ^3/uL Eosinophils # (Auto) 0.4 0-0.8 10 ^3/uL Basophils # (Auto) 0.1 0-0.2 10 ^3/uL Nucleated Red Blood Cells 0.1 % Sodium Level 141 136-145 mmol/L Potassium Level 3.9 3.5-5.1 mmol/L Chloride Level 108 H 98-107 mmol/L Carbon Dioxide Level 26 20-31 mmol/L Anion Gap 7 5-15 Blood Urea Nitrogen 8 L 9-23 mg/dL Creatinine 0.67 0.550-1.02 mg/dL Glomerular Filtration Rate Calc 103 >90 mL/min BUN/Creatinine Ratio 11.9 10.0-20.0 Serum Glucose 97 74-106 mg/dL Calcium Level 8.4 L 8.7-10.4 mg/dL Prothrombin Time 10.3 9.3-11.8 sec Prothrombin Time INR 0.97 0.9-1.15 Activated Partial Thromboplast Time 32.2 24.5-34.5 SEC Lactic Acid Level 0.8 0.4-2.0 mmol/L Total Bilirubin 0.6 0.2-1.0 mg/dL Aspartate Amino Transferase (AST) 24 13-40 U/L Alanine Aminotransferase (ALT) 20 7-40 U/L Alkaline Phosphatase 92 46-116 U/L Total Protein 6.9 5.7-8.2 g/dL Albumin 4.0 3.2-4.8 g/dL Urine Color Light-yellow Yellow Urine Clarity Turbid H Clear Urine pH 7.0 5.0-9.0 Urine Specific [place] 1.016 1.001-1.035 Urine Protein Negative Negative Urine Ketones Negative Negative Urine Blood Negative Negative /uL Urine Nitrite Negative Negative Urine Bilirubin Negative Negative Urine Urobilinogen Normal Negative mg/dL Urine Leukocyte Esterase Negative Negative /uL Urine RBC 8 0 - 4 /hpf Urine Microscopic WBC 1 0-5 /HPF Urine Squamous Epithelial Cells Mod <5 /hpf Urine Amorphous Crystals Few None Seen /hpf Urine Bacteria None seen None Seen /hpf Urine Glucose Normal Normal mg/dL Problems(with codes): (1) Inflammatory bowel disease (2) Abdominal pain (3) Rectal bleed (4) Non-specific colitis Plan/Recommendation Plan Mesalamine 800 mg p.o. three times a day Start IV Solu-Medrol 40 mg q.8 hours We will taper slowly over the next 24-48 hours and then discharge her home on Medrol Dosepak Patient will be advised to follow up in my office as an outpatient for ongoing management and close observation of her colitis. Patient can be seen for a follow up at our [facility] Plan discussed with: Other (Dr Luis) WILDA DAVENPORT MD Jan 14, 2025 22:00
[2025-01-14] MEDS: methylPREDNISolone SOD SUCC 40 MG/ML VL IV SCH (22:35)
[2025-01-14] MEDS: MESALAMINE 400mg Delayed Release Cap PO SCH (22:36)
[2025-01-15] VITALS (7 sets, daily range): BP systolic 92–112; BP diastolic 58–70; PULSE 67–83; RESP 17–18; TEMP 97.4–98.1; O2SAT 95–100
[2025-01-15 06:19] LABS: Hematocrit 35.2 % (36.0-46.0); Hemoglobin 11.8 g/dL (12.2-16.2); Mean Corpuscular Hemoglobin 30.2 pg (28.0-32.0); Mean Corpuscular Volume 90.1 fL (80.0-100.0); Nucleated Red Blood Cells % 0.1 %
[2025-01-15 06:50] LABS: Alanine Aminotransferase 14 U/L (7-40); Albumin 3.6 g/dL (3.2-4.8); Alkaline Phosphatase 73 U/L (46-116); Anion Gap 8 (5-15); BUN/Creatinine Ratio 14.7 (10.0-20.0); Bilirubin, Total 0.4 mg/dL (0.2-1.0); Blood Urea Nitrogen 10 mg/dL (9-23); Calcium 9.3 mg/dL (8.7-10.4); Carbon Dioxide 24 mmol/L (20-31); Potassium 4.2 mmol/L (3.5-5.1); Sodium 141 mmol/L (136-145); Total Protein 6.4 g/dL (5.7-8.2)
[2025-01-15 06:52] LABS: Chloride 109 mmol/L (98-107); Glucose 134 mg/dL (74-106)
[2025-01-15] MEDS: ACETAMINOPHEN 325 MG TAB PO PRN (10:01)
--- NOTE | 2025-01-15 11:33 | DVHPN2 ---
Progress Note Date Seen: Jan 15, 2025 Medical Necessity Reason Pt with a Central, PICC or Fol: No Subjective Patient reports: No new complaints Review of Systems: HEENT:Normal, CVS:Normal, RESPIRATORY:Normal, GI:Normal, :Normal, MSK:Normal, NEURO:Normal Objective vital signs Vital Sign Date Time Temp Pulse Resp B/P (MAP) Pulse Ox O2 Delivery O2 Flow Rate FiO2 01/15/25 08:42 97.5 72 18 112/70 (84) 100 97.5 01/14/25 21:10 Room Air* 0 21 Total Intake and Output 01/14/25 01/14/25 01/15/25 15:00 23:00 07:00 Intake Total 150 ml 1000 ml Output Total 0 ml Balance 150 ml 1000 ml medications Current Medications Medications Dose Ordered Sig/Carlton Route Start Time Stop Time Status Last Admin Dose Admin Pantoprazole Sodium 40 mg DAILY IV 01/14/25 10:00 01/15/25 09:01 40 MG Acetaminophen/ Hydrocodone Bitart 1 tab Q4HP PRN PO 01/13/25 20:15 01/14/25 05:42 1 TAB Ondansetron HCl 4 mg Q4HP PRN IV 01/13/25 20:15 01/14/25 10:45 4 MG Acetaminophen 650 mg Q6HP PRN PO 01/13/25 20:15 01/15/25 10:01 650 MG Morphine Sulfate 2 mg Q6HPRN PRN IV 01/13/25 20:15 Methylprednisolone Sodium Succinate 40 mg Q8HR IV 01/14/25 22:00 01/15/25 05:58 40 MG Mesalamine 800 mg TID PO 01/14/25 22:00 01/15/25 05:58 800 MG Sodium Chloride 1,000 ml @ 75 mls/hr [id number] IV 01/14/25 14:15 01/14/25 22:00 75 MLS/HR Examination: GENERAL:Normal, HEENT:Normal, NECK:Normal, LUNGS:Normal, CVS:Normal, ABDOMEN:Normal, MSK:Normal, SKIN:Normal, NEURO:Normal, :Normal laboratory and microbiology Laboratory Tests 01/15/25 05:28 Test 01/15/25 05:28 Range/Units Serum Glucose 134 H 74-106 mg/dL Problem List/Assessment/Plan Problem List/Assessment/Plan #1 ulcerative colitis with flare up: ivf, iv steroids, gi eval, mesalamine, advance diet advance care planning- full code-time spent 18 mins Plan discussed with: Patient My Orders My Orders Orders - RANDALL MONTGOMERY MD Procedure Category Date Status Time * Gi Dvh Education Diagnostician CONS 01/14/25 Transmitted 14:01 Methylprednisolone PHA 01/14/25 In Process Sod Succ (Solu Medrol 22:[address] Capsule PHA 01/14/25 In Process (Delzicol Delayed 22:00 Sodium Chloride 0.9% PHA 01/14/25 In Process 14:15 Regular Diet DIET 01/15/25 Verified Lunch Date of Service: Jan 15, 2025 Billing Provider: RANDALL MONTGOMERY MD Common Visit Codes: [id number] INP/OBS CARE(HIGH) RANDALL MONTGOMERY MD Jan 15, 2025 11:33
--- NOTE | 2025-01-15 21:52 | DVHPN2 ---
Progress Note - Dictate Date Seen: Jan 15, 2025 Medical Necessity Reason Pt with a Central, PICC or Fol: No Subjective No new complaints, patient is resting comfortably She only had one bowel movement today and there was no significant bleeding There was no nausea or vomiting and abdominal pain is improving Patient states that mesalamine helps her symptoms Tolerating regular diet vital signs Vital Sign Date Time Temp Pulse Resp B/P (MAP) Pulse Ox O2 Delivery O2 Flow Rate FiO2 01/15/25 21:01 97.4 74 18 98/59 (72) 98 97.4 01/15/25 20:00 Room Air* 0 21 Total Intake and Output 01/14/25 01/14/25 01/15/25 15:00 23:00 07:00 Intake Total 150 ml 1000 ml Output Total 0 ml Balance 150 ml 1000 ml medications Current Medications Medications Dose Ordered Sig/Carlton Route Start Time Stop Time Status Last Admin Dose Admin Pantoprazole Sodium 40 mg DAILY IV 01/14/25 10:00 01/15/25 09:01 40 MG Acetaminophen/ Hydrocodone Bitart 1 tab Q4HP PRN PO 01/13/25 20:15 01/14/25 05:42 1 TAB Ondansetron HCl 4 mg Q4HP PRN IV 01/13/25 20:15 01/14/25 10:45 4 MG Acetaminophen 650 mg Q6HP PRN PO 01/13/25 20:15 01/15/25 10:01 650 MG Morphine Sulfate 2 mg Q6HPRN PRN IV 01/13/25 20:15 Methylprednisolone Sodium Succinate 40 mg Q8HR IV 01/14/25 22:00 01/15/25 15:40 40 MG Mesalamine 800 mg TID PO 01/14/25 22:00 01/15/25 15:40 800 MG objective Gen: 64-year-old female in no distress Skin: Warm, dry, normal color and texture, no rash. HEENT: Normocephalic atraumatic, mucous membranes moist and pink. Neck: Cervical and supraclavicular nodes normal without enlargement, trachea is midline, thyroid gland is normal without masses. Pulmonary: Clear to auscultation and percussion bilaterally. Cardiac: Regular rate and rhythm. No murmur Abdomen: Soft, lower abdominal pain, nondistended, bowel sounds present all 4 quadrants, no guarding, no rigidity, no organomegaly. Extremities: No cyanosis, clubbing, no edema Neuro: Cranial nerves II through XII grossly intact, normal affect and speech, no focal motor deficits. laboratory and microbiology Laboratory Tests 01/15/25 05:28 Test 01/15/25 05:28 Range/Units Serum Glucose 134 H 74-106 mg/dL Problems(with codes): (1) Inflammatory bowel disease (2) Rectal bleed (3) Non-specific colitis (4) Abdominal pain Prognosis Plan Decrease IV Solu-Medrol to 40 mg q.12 hours Tomorrow we can initiate prednisone 40 mg p.o. daily Continue mesalamine 800 mg p.o. three times a day Check labs in IBD panel in a.m.; at bedside was questioning her discharge Discharge planning as per hospitalist on mesalamine and Medrol Dosepak Patient was advised follow up in my office in 2-4 weeks after discharge for ongoing management Plan discussed with: Patient, Spouse, Other (Dr Luis) WILDA DAVENPORT MD Jan 15, 2025 21:52
[2025-01-15] MEDS: methylPREDNISolone SOD SUCC 40 MG/ML VL IV SCH (22:00)
[2025-01-16 01:00] VITALS: BP 104/63; PULSE 70; RESP 18; TEMP 98.8; O2SAT 99
[2025-01-16 05:00] VITALS: BP 109/67; PULSE 80; RESP 18; TEMP 97.7; O2SAT 98
[2025-01-16] MEDS: PANTOPRAZOLE 40 MG TAB PO SCH (05:59)
[2025-01-16 09:00] VITALS: BP 117/66; PULSE 71; RESP 18; TEMP 97.4; O2SAT 99
[2025-01-16 13:00] VITALS: BP 100/61; PULSE 73; RESP 18; TEMP 98; O2SAT 98
--- NOTE | 2025-01-16 13:18 | DVHDS2 ---
Discharge Summary Date of Admission Jan 13, 2025 at 19:53 Labs/Diagnostic Data: Laboratory Results Test 01/15/25 05:28 01/13/25 17:34 01/13/25 17:00 White Blood Count 9.6 10^3/uL (4.4-10.8) Red Blood Count 3.91 10^6/uL (4.0-5.20) Hemoglobin 11.8 g/dL (12.2-16.2) Hematocrit 35.2 % (36.0-46.0) Mean Corpuscular Volume 90.1 fL (80.0-100.0) Mean Corpuscular Hemoglobin 30.2 pg (28.0-32.0) Mean Corpuscular Hemoglobin Concent 33.5 g/dL (32.0-36.0) Red Cell Distribution Width 15.2 % (11.8-14.3) Platelet Count 410 10^3/uL (140-450) Mean Platelet Volume 7.3 fL (6.9-10.8) Neutrophils (%) (Auto) 65.0 % (37.0-80.0) Lymphocytes (%) (Auto) 32.4 % (10.0-50.0) Monocytes (%) (Auto) 2.3 % (0.0-12.0) Eosinophils (%) (Auto) 0.1 % (0.0-7.0) Basophils (%) (Auto) 0.2 % (0.0-2.0) Neutrophils # (Auto) 6.3 10 ^3/uL (1.6-8.6) Lymphocytes # (Auto) 3.1 10 ^3/uL (0.4-5.4) Monocytes # (Auto) 0.2 10 ^3/uL (0-1.3) Eosinophils # (Auto) 0 10 ^3/uL (0-0.8) Basophils # (Auto) 0 10 ^3/uL (0-0.2) Nucleated Red Blood Cells 0.1 % Sodium Level 141 mmol/L (136-145) Potassium Level 4.2 mmol/L (3.5-5.1) Chloride Level 109 mmol/L (98-107) Carbon Dioxide Level 24 mmol/L (20-31) Anion Gap 8 (5-15) Blood Urea Nitrogen 10 mg/dL (9-23) Creatinine 0.68 mg/dL (0.550-1.02) Glomerular Filtration Rate Calc 102 mL/min (>90) BUN/Creatinine Ratio 14.7 (10.0-20.0) Serum Glucose 134 mg/dL (74-106) Calcium Level 9.3 mg/dL (8.7-10.4) Total Bilirubin 0.4 mg/dL (0.2-1.0) Aspartate Amino Transferase (AST) 19 U/L (13-40) Alanine Aminotransferase (ALT) 14 U/L (7-40) Alkaline Phosphatase 73 U/L (46-116) C-Reactive Protein High Sensitivity 2.25 mg/dL (<1.0) Total Protein 6.4 g/dL (5.7-8.2) Albumin 3.6 g/dL (3.2-4.8) Prothrombin Time 10.3 sec (9.3-11.8) Prothrombin Time INR 0.97 (0.9-1.15) Activated Partial Thromboplast Time 32.2 SEC (24.5-34.5) Lactic Acid Level 0.8 mmol/L (0.4-2.0) Urine Color Light-yellow (Yellow) Urine Clarity Turbid (Clear) Urine pH 7.0 (5.0-9.0) Urine Specific [place] 1.016 (1.001-1.035) Urine Protein Negative (Negative) Urine Ketones Negative (Negative) Urine Blood Negative /uL (Negative) Urine Nitrite Negative (Negative) Urine Bilirubin Negative (Negative) Urine Urobilinogen Normal mg/dL (Negative) Urine Leukocyte Esterase Negative /uL (Negative) Urine RBC 8 /hpf (0 - 4) Urine Microscopic WBC 1 /HPF (0-5) Urine Squamous Epithelial Cells Mod /hpf (<5) Urine Amorphous Crystals Few /hpf (None Seen) Urine Bacteria None seen /hpf (None Seen) Urine Glucose Normal mg/dL (Normal) Other Laboratory Tests 01/15/25 05:28 Discharge Instruct/Medications Scheduled Cholecalciferol (Vitamin D3), 1 TAB PO DAILY, (Reported) Mesalamine (Apriso), 4 CAP PO BID, (Reported) Discharge Statement: "Patient was advised to return to the ER or call 911 if any headaches, dizziness, shortness of breath, chest pain, abdominal pain, bleeding, fevers, or worsening of medical condition. Patient was counseled about treatment plan, medications, possible side effects, patientverbalized understanding. All questions were answered to the best of my ability. This discharge took greater then 30 minutes in planning, reviewing documentation, counseling the patient, and discussing with other team members." ASSESSMENT ASSESSMENT Assessment RYAN FOLEY MD Jan 16, 2025 13:18
[2025-01-16] MEDS ORDERED: PANT40T PO (13:20)
[2025-01-16] MEDS ORDERED: MESA400C PO (13:20)
[2025-01-16] MEDS ORDERED: PRED20TA2 PO (13:20)
--- NOTE | 2025-01-16 21:50 | DVHPN2 ---
Progress Note - Dictate Date Seen: Jan 16, 2025 (Late entry Time of visit was 2:00 p.m.) Medical Necessity Reason Pt with a Central, PICC or Fol: No Subjective No new complaints, patient is resting comfortably She only had one bowel movement today and there was no significant bleeding There was no nausea or vomiting and abdominal pain is improving Patient states that mesalamine helps her symptoms Tolerating regular diet vital signs Vital Sign Date Time Temp Pulse Resp B/P (MAP) Pulse Ox O2 Delivery O2 Flow Rate FiO2 01/16/25 13:00 98.0 73 18 100/61 (74) 98 98.0 01/16/25 08:00 Room Air* 0 21 Total Intake and Output 01/15/25 01/15/25 01/16/25 14:59 22:59 06:59 Intake Total 320 ml 1200 ml 800 ml Balance 320 ml 1200 ml 800 ml objective Gen: 64-year-old female in no distress Skin: Warm, dry, normal color and texture, no rash. HEENT: Normocephalic atraumatic, mucous membranes moist and pink. Neck: Cervical and supraclavicular nodes normal without enlargement, trachea is midline, thyroid gland is normal without masses. Pulmonary: Clear to auscultation and percussion bilaterally. Cardiac: Regular rate and rhythm. No murmur Abdomen: Soft, lower abdominal pain, nondistended, bowel sounds present all 4 quadrants, no guarding, no rigidity, no organomegaly. Extremities: No cyanosis, clubbing, no edema Neuro: Cranial nerves II through XII grossly intact, normal affect and speech, no focal motor deficits. laboratory and microbiology Laboratory Tests 01/15/25 05:28 Test 01/15/25 05:28 Range/Units Serum Glucose 134 H 74-106 mg/dL Problems(with codes): (1) Inflammatory bowel disease (2) Rectal bleed (3) Abdominal pain (4) Non-specific colitis Prognosis Plan Patient is stable and discharge planning is in progress She can be discharged on mesalamine 800 mg p.o. three times a day and one Medrol Dosepak Outpatient follow up with gastro group or in my office in 2-4 weeks after discharge Possible repeat colonoscopy in the near future Dietary Evaluation Review Comments: Collect A1C Follow a low fat CCHO-60 diet Expected Outcomes/Goals: controlled blood sugar. Plan discussed with: Patient WILDA DAVENPORT MD Jan 16, 2025 21:50
== END 2025-01-16 15:09 | disposition home or self-care (01) | DRG 392 ==
LOC: ER 16:52 → OVERFLOW 19:53 → EAST 01-14 20:15
PROVIDERS: ADMIT Internal Medicine; ATTEND Internal Medicine
DX: K52.9 Noninfective gastroenteritis and colitis, unspecified (principal); K51.90 Ulcerative colitis, unspecified, without complications; K44.9 Diaphragmatic hernia without obstruction or gangrene; I88.0 Nonspecific mesenteric lymphadenitis; K21.9 Gastro-esophageal reflux disease without esophagitis; Z83.3 Family history of diabetes mellitus; Z82.49 Family history of ischemic heart disease and other diseases of the circulatory system
CPT/HCPCS: 36415; 74176; 80048; 80053; 81001; 83605; 85025; 85610; 85730; 86141; G0378; J2405; J2470; J3490